=== PATIENT | male | born 1985 | race Caucasian/White ===

== ENCOUNTER 2020-06-08 15:49 | Emergency (ER) | payer SELFPAY ==
[~2020-06-08] VITALS: Ht 170.2 cm; Wt 65.4 kg
[2020-06-08] MEDS ORDERED: KETOROLAC 30 MG/ML VIAL. ONE (16:07)
[2020-06-08] MEDS ORDERED: ONDANSETRON PF 4 MG/2 ML VIAL. ONE (16:07)
[2020-06-08] MEDS ORDERED: ONDANSETRON PF 4 MG/2 ML VIAL. IVP ONE ×2 (16:15→17:30)
[2020-06-08] MEDS ORDERED: IV NORMAL SALINE 1,000ML 1,000 ML IV SCH (16:15)
[2020-06-08 16:36] LABS: BASO % 0 % (0-3); EOS % 0 % (0-3); HEMOGLOBIN 14.3 g/dL (13.0-17.5); LYMPH # 0.9 x10^3/uL (1.0-4.8); LYMPH % 12 % (24-48); MEAN CORPUSCULAR HEMOGLOBIN 31 pg (25-35); MEAN CORPUSCULAR HGB CONC 33 g/dL (31-37); MEAN CORPUSCULAR VOLUME 93 fL (79-100); MONO # 0.5 x10^3/uL (0.0-1.1); MONO % 6 % (0-9); NEUT # 6.6 x10^3uL (1.8-7.7); NEUT % 82 % (31-73); PLATELET COUNT 155 x10^3/uL (140-400); RED BLOOD COUNT 4.62 x10^6/uL (4.30-5.70); RED CELL DISTRIBUTION WIDTH 12.8 % (11.5-14.5)
[2020-06-08 16:41] LABS: CREATININE 1.1 mg/dL (0.7-1.3); GFR 77.6
[2020-06-08 16:47] LABS: ALBUMIN 4.2 g/dL (3.4-5.0); ALBUMIN/GLOBULIN RATIO 1.4 (1.0-1.7); TOTAL BILIRUBIN 1.9 mg/dL (0.2-1.0); TOTAL PROTEIN 7.2 g/dL (6.4-8.2)
--- NOTE | 2020-06-08 16:57 | PHYS DOC ---
General Adult EDM: Chief Complaint: FLANK PAIN HPI: HPI: Patient is a 34-year-old male presents with right-sided lower abdominal pain, nausea/vomiting. Patient reports that symptoms started today. Patient denies taking anything at home for pain or nausea. Patient denies fever or CVA tenderness. Patient denies diarrhea. (SONU ROMERO APRN) Review of Systems: Review of Systems: Constitutional: Denies fever or chills Eyes: Denies change in visual acuity HENT: Denies nasal congestion or sore throat Respiratory: Denies cough or shortness of breath Cardiovascular: Denies chest pain or edema GI: Reports right-sided abdominal pain, nausea, vomiting. Denies bloody stools or diarrhea : Denies dysuria Musculoskeletal: Denies back pain or joint pain Integument: Denies rash Neurologic: Denies headache, focal weakness or sensory changes Endocrine: Denies polyuria or polydipsia Lymphatic: Denies swollen glands Psychiatric: Denies depression or anxiety (SONU ROMERO APRN) Current Medications: Current Meds: Current Medications Medications (Trade) Dose Ordered Sig/Toby Start Time Stop Time Status Last Admin Dose Admin Ketorolac Tromethamine (Toradol 30mg Vial) 30 mg STK-MED ONCE 06/08/20 16:07 06/08/20 16:08 DC Ondansetron HCl (Zofran) 4 mg 1X ONCE 06/08/20 16:15 06/08/20 16:20 DC Sodium Chloride 1,000 ml @ 1,000 mls/hr Q1H 06/08/20 16:15 06/08/20 17:14 (SONU ROMERO APRN) Allergies: Allergies: Allergies Coded Allergies Type Severity Reaction Last Updated Verified No Known Drug Allergies 06/08/20 No (SONU ROMERO APRN) Physical Exam: PE: Constitutional: Well developed, well nourished, no acute distress, non-toxic appearance. [] HENT: Normocephalic, atraumatic, bilateral external ears normal, oropharynx moist, no oral exudates, nose normal. [] Eyes: PERRLA, EOMI, conjunctiva normal, no discharge. [] Neck: Normal range of motion, no tenderness, supple, no stridor. [] Cardiovascular:Heart rate regular rhythm, no murmur [] Lungs & Thorax: Bilateral breath sounds clear to auscultation [] Abdomen: Bowel sounds normal, soft, right-sided lower tenderness Skin: Warm, dry, no erythema, no rash. [] Back: No tenderness, no CVA tenderness. [] Extremities: No tenderness, no cyanosis, no clubbing, ROM intact, no edema. [] Neurologic: Alert and oriented X 3, normal motor function, normal sensory function, no focal deficits noted. [] Psychologic: Affect normal, judgement normal, mood normal. [] (SONU ROMERO COUNTER CLERK) Current Patient Data: Labs: Laboratory Tests Test 06/08/20 15:59 Sodium Level 141 mmol/L (136-145) Potassium Level 4.0 mmol/L (3.5-5.1) Chloride Level 104 mmol/L (98-107) Carbon Dioxide Level 26 mmol/L (21-32) Anion Gap 11 (6-14) Blood Urea Nitrogen 17 mg/dL (8-26) Creatinine 1.1 mg/dL (0.7-1.3) Estimated GFR (Cockcroft-Gault) 77.6 BUN/Creatinine Ratio 15 (6-20) Glucose Level 136 mg/dL (70-99) H Calcium Level 9.0 mg/dL (8.5-10.1) Total Bilirubin Pending Aspartate Amino Transferase (AST) Pending Alanine Aminotransferase (ALT) Pending Alkaline Phosphatase Pending Total Protein Pending Albumin Pending Albumin/Globulin Ratio Pending Lipase Pending (SONU ROMERO COUNTER CLERK) EKG: EKG: [] (SONU ROMERO COUNTER CLERK) Radiology/Procedures: Radiology/Procedures: []Exam: CT of abdomen and pelvis without contrast INDICATION: Right abdominal and flank pain TECHNIQUE: Sequential axial images through the abdomen and pelvis obtained without IV contrast. Sagittal and coronal reformatted images were reconstructed from the axial data and reviewed. Comparisons: None FINDINGS: Heart size is normal. No pericardial effusion. Visualized lung bases are clear. No pleural effusion. Evaluation of the solid organs is limited secondary to noncontrast technique. Liver, spleen, pancreas, gallbladder and adrenals are unremarkable. No perinephric inflammation. There is mild right-sided hydronephrosis with a 5 mm calculus the distal right ureter. 3 mm nonobstructing right renal calculi are noted. Bladder is decompressed not well evaluated. Prostate is not enlarged. Large and small bowel are unremarkable. Appendix is normal. No free intra- abdominal air or fluid. No obstruction. Abdominal aorta has a normal course and caliber. No enlarged intra-abdominal lymph nodes are identified. No suspicious osseous lesions or acute fractures. IMPRESSION: 1. A 5 mm calculus at the distal right ureter with mild right-sided hydronephrosis. 2. Additionally there is a nonobstructing right renal calculus measuring approximately 3 mm. Exposure: One or more of the following in the visualized dose reduction techniques were utilized for this examination: 1. Automated exposure control 2. Adjustment of the MA and/or KV according to patient size 3. Use of iterative of reconstructive technique Electronically signed by: Philippe Billings MD (06/08/2020 4:52 PM) [facility] (SONU ROMERO APRN) Heart Score: Risk Factors: Risk Factors: DM, Current or recent (<one month) smoker, HTN, HLP, family history of CAD, obesity. Risk Scores: Score 0 - 3: 2.5% MACE over next 6 weeks - Discharge Home Score 4 - 6: 20.3% MACE over next 6 weeks - Admit for Clinical Observation Score 7 - 10: 72.7% MACE over next 6 weeks - Early Invasive Strategies (SONU ROMERO APRN) Course & Med Decision Making: Course & Med Decision Making Pertinent Labs and Imaging studies reviewed. (See chart for details) []Patient is a 34-year-old male presents with right-sided lower abdominal pain, nausea/vomiting. Patient reports that symptoms started today. Patient denies taking anything at home for pain or nausea. Patient denies fever or CVA tenderness. Patient denies diarrhea. CT abdomen pelvis ordered. Basic labs and UA ordered. Zofran and Toradol given for pain. Patient reassessed. Nausea and pain improved. Lab work and UA negative for infection. CT is showing A 5 mm calculus at the distal right ureter with mild right-sided hydronephrosis. Additionally there is a nonobstructing right renal calculus measuring approximately 3 mm. Will order Zofran and hydrocodone for at home. Will have patient follow-up with his primary care for possible referral for urology. We will send patient home with Flomax and strainer. Patient informed he can also take ibuprofen for pain. Explained to patient it may take up to week for stone to pass. Impression 1.nephrolithiasis 2.abdominal pain 3.nausea/vomiting (SONU ROMERO APRN) Ash Disclaimer: Ash Disclaimer: This electronic medical record was generated, in whole or in part, using a voice recognition dictation system. (SONU ROMERO APRN) Departure Departure: Impression: Primary Impression: Kidney stone on right side Disposition: 01 DC HOME SELF CARE/HOMELESS Condition: GOOD Referrals: PCP,NO (PCP) Patient Instructions: Kidney Stones, [id number] Additional Instructions: Received in the emergency room today for right lower abdominal pain, and vomiting. The CT of your abdomen shows a nonobstructing, kidney stone. We will send you home with Zofran for nausea, hydrocodone for pain, and Flomax. You may also take ibuprofen for pain. We will also provide you with a strainer to use at home, it may take up to 1 week for stone to pass. Please return to the emergency room with worsening symptoms or concerns. Otherwise follow-up with your primary care for further management. EMERGENCY DEPARTMENT GENERAL DISCHARGE INSTRUCTIONS Thank you for coming to [facility] (ED) today and trusting us with you care. We trust that you had a positivie experience in our Emergency Department. If you wish to speak to the department management, you may call the director at [phone]. YOUR FOLLOW UP INSTRUCTIONS ARE FOLLOWS: 1. Do you have a private Doctor? If you do not have a private doctor, please ask for a resource list of physicians or clinics that may be able to assist you with follow up care. 2. The Emergency Physician has interpreted your x-rays. The X-Ray specialist will also review them. If there is a change in the findings, you will be notified in 48 hours when at all possible. 3. A lab test or culture has been done, your results will be reviewed and you will be notified if you need a change in treatment. ADDITIONAL INSTRUCTIONS AND INFORMATION: 1. Your care today has been supervised by a physician who is specially trained in emergency care. Many problems require more than one evaluation for a complete diagnosis and treatment. We recommend that you schedule your follow up appointment as recommended to ensure complete treatment of you illness or injury. If you are unable to obtain follow up care and continue to have a problem, or if your condition worsens, we recommend that you return to the ED. 2. We are not able to safely determine your condition over the phone nor are we able to give sound medical advice over the phone. For these safety reasons, if you call for medical advice we will ask you to come to the ED for further evaluation. 3. If you have any questions regarding these discharge instructions please call the ED at [phone]. SAFETY INFORMATION: In the interest of safety, wellness, and injury prevention; we encourage you to wear your sealbelt, if you smoke; quite smoking, and we encourage family to use a protective helmet for bicycling and other sporting events that present an increased risk for head injury. IF YOUR SYMPTOMS WORSEN OR NEW SYMPTOMS DEVELOP, OR YOU HAVE CONCERNS ABOUT YOUR CONDITION; OR IF YOUR CONDITION WORSENS WHILE YOU ARE WAITING FOR YOUR FOLLOW UP APPOINTMENT; EITHER CONTACT YOUR PRIMARY CARE DOCTOR, THE PHYSICIAN WHOSE NAME AND NUMBER YOU WERE GIVEN, OR RETURN TO THE ED IMMEDIATELY. Scripts Hydrocodone Bit/Acetaminophen (HYDROCODONE-APAP 5-325 ) 1 Each Tablet 0.5-1 TAB PO PRN Q6HRS PRN for PAIN for 3 Days, #15 TAB 0 Refills Prov: SONU ROMERO APRN 06/08/20 Ondansetron Hcl (ZOFRAN) 4 Mg Tablet 4 MG PO TID PRN PRN for NAUSEA, #15 TAB Prov: SONU ROMERO APRN 06/08/20 Tamsulosin Hcl (FLOMAX) 0.4 Mg Cap.er.24h 1 CAP PO DAILY for kidney stone for 14 Days, #14 CAP 0 Refills Prov: SONU ROMERO APRN 06/08/20 Attending Signature Attending Signature I have reviewed the PA/LAUNDRY MACHINE MECHANIC's note and plan of care. I was available for consultation as needed during the patient's visit in the emergency department. I agree with the clinical impression, plan, and disposition. (MIRIAN PANTOJA DO) SONU ROMERO APRN Jun 08, 2020 16:57 MIRIAN PANTOJA DO Jun 09, 2020 00:32
[2020-06-08] MEDS ORDERED: ONDA4TAB7 PO (17:09)
[2020-06-08] MEDS ORDERED: TAMS0.4C97 PO (17:09)
[2020-06-08] MEDS ORDERED: HYDR-2155 PO (17:09)
[2020-06-08] MEDS ORDERED: HYDROcodone/APAP 5/325MG 1 TAB TABLET PO ONE (17:15)
[2020-06-08] MEDS ORDERED: TAMSULOSIN 0.4 MG CAP.ER.24H. PO ONE (17:15)
[2020-06-08 17:45] VITALS: BP 117/73
== END 2020-06-08 17:48 | disposition home or self-care (01) ==
LOC: ER 15:49
DX: N13.2 Hydronephrosis with renal and ureteral calculous obstruction (principal); R11.2 Nausea with vomiting, unspecified
CPT/HCPCS: 36415; 74176; 80053; 83690; 85025; 96361; 96374; 96376; 99284; J2405; J7030; 96360